=== PATIENT | female | born 1975 | race Caucasian/White ===

== ENCOUNTER 2017-02-08 16:12 | Emergency (ER) | payer BC ==
[~2017-02-08] VITALS: Ht 165.1 cm; Wt 109.0 kg
[~2017-02-08 16:12] MED LIST: ADVIN25050 INH; ALBU1AER9; GABA-112 PO; TRAM-10 PO
[2017-02-08 16:24] VITALS: Ht 165.1 cm; Wt 109.0 kg
[2017-02-08] MEDS ORDERED: SODIUM CHLORIDE 0.9% 1000ML 1,000 ML IV STA (18:03)
[2017-02-08] MEDS ORDERED: ONDANSETRON 8 MG/54 ML D5W IV STA (18:03)
[2017-02-08] MEDS ORDERED: ADVIN25/60 INH (18:31)
[2017-02-08] MEDS ORDERED: LISI-725 PO (18:32)
[2017-02-08] MEDS ORDERED: META1TAB22 PO (18:34)
[2017-02-08] MEDS ORDERED: PRED10TA PO (18:35)
--- NOTE | 2017-02-08 18:38 | DIAGNOSTIC IMAGING REPORT ---
CHEST ONE VIEW PORTABLE CLINICAL HISTORY: Altered mental status. Weakness. COMPARISON STUDY: 04/15/2007 FINDINGS: There are multiple bilateral pulmonary nodules which appear larger than on the prior study. There is no failure. There is no focal pulmonary consolidation. There are no pleural effusions.[ IMPRESSION: Slowly enlarging bilateral pulmonary nodules. Electronically signed by: Miguel Gillette M.D. 02/08/2017 6:37 PM Dictated Date/Time: 02/08/2017 6:35 PM
[2017-02-08 18:41] LABS: BASO % 0.2 %; BASO ABS # 0.03 K/uL (0-0.2); COMPLETE YES; EOS % 0.4 %; HEMATOCRIT 45.5 % (37-47); IG% 0.8 %; LYMPH % 5.8 %; LYMPH ABS # 0.74 K/uL (1.2-3.4); MEAN CELL VOLUME 86.8 fL (80-100); MEAN CORPUSCULAR HEMOGLOBIN 30.2 pg (25-34); MEAN CORPUSCULAR HGB CONC 34.7 g/dl (32-36); MEAN PLATELET VOLUME 9.5 fL (7.4-10.4); MONO % 8.5 %; NEUT % 84.3 %; PLATELET COUNT 262 K/uL (130-400); RED BLOOD COUNT 5.24 M/uL (4.2-5.4); WHITE BLOOD COUNT 12.86 K/uL (4.8-10.8)
--- NOTE | 2017-02-08 18:41 | EMERGENCY ROOM VISIT NOTE ---
History First contact with patient: 18:02 Chief Complaint: SYNCOPE (NEAR SYNCOPE) Stated Complaint: FLU - CHILLS - PASSING OUT - NAUSIATED - COLD/HOT Nursing Triage Summary: Patient reports around 1400 she started burping, feeling really hot, got sweaty and felt faint. Now she is chilled and weak all over, nauseated. History of Present Illness The patient is a 41 year old female who presents to the Emergency Room with complaints of syncopal episode. Patient reports around 2pm at work She abruptly started feeling sick including symptoms of subjective fever, chills, upset stomach, and lightheadedness. Around 2:15, She was found on floor by co- worker after brief episode of LOC. The event was unwitnessed. Patient has minimal recall of event. Since that time, patient reports progression of chills , lightheadedness, weakness but no further episodes of syncope. Additional symptoms include watery non-bloody diarrhea x1, body ache and since being in hospital increasing urinary urgency. + Sick contact at work diagnosed with influenza. She denies URI symptoms. Recently patient was started on 60 mg prednisone taper which started 02/04 which she reported was for prolapsed disc. Review of Systems See HPI for pertinent positives & negatives. A total of 10 systems reviewed and were otherwise negative. Past Medical/Surgical History Medical Problems: (1) Back pain (2) Hypertension Social History Smoking Status: Current Every Day Smoker Current/Historical Medications Scheduled Buspirone Hcl (Buspirone Hcl), 10 MG PO BID Fluticasone Prop/Salmeterol (Advair Diskus 250/50 60 Dose), 1 PUFF INH BID Lisinopril (Zestril), 20 MG PO DAILY Prednisone (Prednisone), 10 MG PO DAILY/UD Scheduled PRN Metaxalone (Skelaxin), 800 MG PO TID PRN for SPASMS Tramadol (Ultram), 50 MG PO QID PRN for Pain Allergies Coded Allergies: Latex (Verified Allergy, Intermediate, BLISTERS/RASH, 02/08/17) Naproxen (Verified Allergy, Intermediate, HIVES, 02/08/17) Latex1 -Allergic Contact Dermititis (Unverified Allergy, Mild, 02/08/17) Milk (Unverified Allergy, Mild, 02/08/17) Peanut (Verified Allergy, Mild, 02/08/17) Penicillins (Verified Allergy, Unknown, 02/08/17) Uncoded Allergies: PENCILLIN (Allergy, Intermediate, TONGUE SWELLS, 03/28/13) ADHESIVE TAPE (Allergy, Mild, RASH, 03/28/13) BAND-AIDS (Allergy, Mild, RASH, 03/28/13) Physical Exam Vital Signs Date Time Temp Pulse Resp B/P Pulse Ox O2 Delivery O2 Flow Rate FiO2 02/08/17 19:50 89 105/56 98 124/69 99 137/102 02/08/17 18:43 133/74 111/67 99/66 02/08/17 16:24 36.5 79 16 92/56 99 Room Air Physical Exam GENERAL: alert, mild distress, well nourished EYE EXAM: normal conjunctiva, PERRL and EOM's grossly intact OROPHARYNX: no exudate, no erythema, lips, buccal mucosa, and tongue normal and mucous membranes are moist NECK: supple, no nuchal rigidity, no adenopathy, non-tender LUNGS: Clear to auscultation. Normal chest wall mechanics HEART: no murmurs, S1 normal and S2 normal ABDOMEN: abdomen soft, non-tender, normo-active bowel sounds, no masses, no rebound or guarding. BACK: Back is symmetrical on inspection and there is no deformity, no midline tenderness, no CVA tenderness. SKIN: no rashes and no bruising UPPER EXTREMITIES: upper extremities are grossly normal. LOWER EXTREMITIES: No pitting edema. Medical Decision & Procedures ER Provider Diagnostic Interpretation: CHEST ONE VIEW PORTABLE CLINICAL HISTORY: Altered mental status. Weakness. COMPARISON STUDY: 04/15/2007 FINDINGS: There are multiple bilateral pulmonary nodules which appear larger than on the prior study. There is no failure. There is no focal pulmonary consolidation. There are no pleural effusions.[ IMPRESSION: Slowly enlarging bilateral pulmonary nodules. Laboratory Results 02/08/17 18:25 Red Blood Count 5.24, Mean Corpuscular Volume 86.8, Mean Corpuscular Hemoglobin 30.2, Mean Corpuscular Hemoglobin Concent 34.7, Mean Platelet Volume 9.5, Neutrophils (%) (Auto) 84.3, Lymphocytes (%) (Auto) 5.8, Monocytes (%) (Auto) 8.5, Eosinophils (%) (Auto) 0.4, Basophils (%) (Auto) 0.2, Neutrophils # (Auto) 10.85, Lymphocytes # (Auto) 0.74, Monocytes # (Auto) 1.09, Eosinophils # (Auto) 0.05, Basophils # (Auto) 0.03 02/08/17 18:25 Test 02/08/17 18:25 02/08/17 19:30 White Blood Count 12.86 K/uL (4.8-10.8) Red Blood Count 5.24 M/uL (4.2-5.4) Hemoglobin 15.8 g/dL (12.0-16.0) Hematocrit 45.5 % (37-47) Mean Corpuscular Volume 86.8 fL (80-100) Mean Corpuscular Hemoglobin 30.2 pg (25-34) Mean Corpuscular Hemoglobin Concent 34.7 g/dl (32-36) Platelet Count 262 K/uL (130-400) Mean Platelet Volume 9.5 fL (7.4-10.4) Neutrophils (%) (Auto) 84.3 % Lymphocytes (%) (Auto) 5.8 % Monocytes (%) (Auto) 8.5 % Eosinophils (%) (Auto) 0.4 % Basophils (%) (Auto) 0.2 % Neutrophils # (Auto) 10.85 K/uL (1.4-6.5) Lymphocytes # (Auto) 0.74 K/uL (1.2-3.4) Monocytes # (Auto) 1.09 K/uL (0.11-0.59) Eosinophils # (Auto) 0.05 K/uL (0-0.5) Basophils # (Auto) 0.03 K/uL (0-0.2) RDW Standard Deviation 39.5 fL (36.4-46.3) RDW Coefficient of Variation 12.2 % (11.5-14.5) Immature Granulocyte % (Auto) 0.8 % Immature Granulocyte # (Auto) 0.10 K/uL (0.00-0.02) Prothrombin Time 10.9 SECONDS (9.0-12.0) Prothromb Time International Ratio 1.0 (0.9-1.1) Activated Partial Thromboplast Time 24.9 SECONDS (21.0-31.0) Partial Thromboplastin Ratio 1.0 Anion Gap 8.0 mmol/L (3-11) Est Creatinine Clear Calc Drug Dose 81.0 ml/min Estimated GFR () 71.2 Estimated GFR (Non- 61.4 BUN/Creatinine Ratio 26.8 (10-20) Calcium Level 8.0 mg/dl (8.5-10.1) Magnesium Level 2.2 mg/dl (1.8-2.4) Total Bilirubin 0.8 mg/dl (0.2-1) Direct Bilirubin 0.1 mg/dl (0-0.2) Aspartate Amino Transf (AST/SGOT) 9 U/L (15-37) Alanine Aminotransferase (ALT/SGPT) 14 U/L (12-78) Alkaline Phosphatase 57 U/L (45-117) Total Creatine Kinase 46 U/L (26-192) Creatine Kinase MB < 0.5 ng/ml (0.5-3.6) Creatine Kinase MB Ratio (0-3.0) Troponin I < 0.015 ng/ml (0-0.045) Total Protein 6.9 gm/dl (6.4-8.2) Albumin 3.7 gm/dl (3.4-5.0) Lipase 137 U/L (73-393) Thyroid Stimulating Hormone (TSH) 1.580 uIu/ml (0.300-4.500) Urine Test NEG (NEG) Medications Administered Medications (Trade) Dose Ordered Sig/Obdulia Route Start Time Stop Time Status Last Admin Dose Admin Sodium Chloride (Nss 1000ml) 1,000 ml @ 999 mls/hr Q1H1M STAT IV 02/08/17 18:03 02/08/17 19:03 DC 02/08/17 18:32 999 MLS/HR Ondansetron HCl (Zofran 8mg Iv) 8 mg NOW STAT IV 02/08/17 18:03 02/08/17 18:05 DC 02/08/17 18:31 8 MG Procedure Sinus rhythm with short MO Nonspecific ST and T wave abnormality Medical Decision 41 yo F w/ hx of disc herniation currently on steroid taper p/w hx of syncopal episode in the setting of chills, bodyache, nausea, diarrhea. Afebrile, Orthostatic BP's of 133/74 supine, 111/67 sitting, 99/66 standing. Exam unremarkable. White Ct of 12.86. Glucose 137, BUN 30 Differential diagnosis includes etiologies such as vasovagal event, infection, hypoglycemia, electrolyte abnormalities, cardiac sources, intracerebral event, toxicologic, neurologic, as well as others were entertained. Elevated Glucose (137), mild leukocytosis likely due to current prednisone therapy. -Patient's Orthostatic BP's consistent with Orthostatic Hypotension. BUN of 30 likely indicates element of dehydration. -Given 1L IV Fluids , Zofran IV 8mg -Upon reevaluation, the patient is feeling better. I discussed the findings and the treatment plan with the patient. She verbalizes agreement and understanding. She was discharged home. Impression Primary Impression: Syncope Departure Information Referrals Sean Gillespie M.D. (PCP) Patient Instructions My [facility] Problem Qualifiers Primary Impression: Syncope Syncope type: unspecified Qualified Codes: R55 - Syncope and collapse
[2017-02-08] MEDS ORDERED: BUSP-8 PO (18:46)
[2017-02-08 18:53] LABS: PROTHROMBIN TIME (PATIENT) 10.9 SECONDS (9.0-12.0)
[2017-02-08 19:07] LABS: ALKALINE PHOSPHATASE 57 U/L (45-117); ALT/SGPT 14 U/L (12-78); AST/SGOT 9 U/L (15-37); BLOOD UREA NITROGEN 30 mg/dl (7-18); BUN/CREATININE RATIO 26.8 (10-20); CARBON DIOXIDE 26 mmol/L (21-32); CHLORIDE 103 mmol/L (98-107); GLUCOSE 137 mg/dl (70-99); MAGNESIUM 2.2 mg/dl (1.8-2.4); POTASSIUM 3.7 mmol/L (3.5-5.1); SODIUM 137 mmol/L (136-145)
[2017-02-08 20:09] LABS: URINE APPEARANCE CLEAR (CLEAR); URINE COLOR ORANGE; URINE EPITHELIAL CELL AUTO >30 /lpf (0-5); URINE NITRITE NEG (NEG); URINE SPECIFIC GRAVITY 1.042 (1.000-1.030); UROBILINOGEN NEG (NEG); ZZUR CULT IF INDIC CLEAN CATCH NO
[2017-02-08 20:11] LABS: MANUAL MICROSCOPIC REQUIRED? NO; REVIEW REQ? YES
[2017-02-08 20:12] LABS: URINE BILIRUBIN NEG (NEG)
[2017-02-08 20:19] VITALS: BP 108/56; PULSE 87; TEMP 37; O2SAT 98
--- NOTE | 2017-02-08 21:29 | EMERGENCY ROOM VISIT NOTE ---
History Report prepared by Nathaniel: [facility] Under the Supervision of: Dr. Brenton Pena D.O. First contact with patient: 18:03 Chief Complaint: SYNCOPE (NEAR SYNCOPE) Stated Complaint: FLU - CHILLS - PASSING OUT - NAUSIATED - COLD/HOT Nursing Triage Summary: Patient reports around 1400 she started burping, feeling really hot, got sweaty and felt faint. Now she is chilled and weak all over, nauseated. History of Present Illness The patient is a 41 year old female who presents to the Emergency Room with complaints of an episode of syncope that occurred around 1400 this afternoon. She reports around 1400, she started "burping and feeling diaphoretic and faint ". One of her friends found her lying in a stairwell shortly afterwards, but she is not sure how long exactly she was unconscious for. She notes she has been "really hot, nauseated and dizzy" for the past few hours. Earlier today she had 1 episode of non-bloody diarrhea and states since shes been in the ED, she feels cold, has the chills and body aches and thinks she has had an increase in urinary frequency. The patient admits a coworker of hers was recently diagnosed with influenza. She herself was prescribed a Prednisone taper on February 04 for a history of a prolapsed disc. Source of History: patient Onset: 1400 this afternoon Position: other (global) Timing: resolved Associated Symptoms: + LOC, + chills, + diarrhea, + nausea, + urinary symptoms Review of Systems See HPI for pertinent positives & negatives. A total of 10 systems reviewed and were otherwise negative. Past Medical & Surgical Medical Problems: (1) Back pain (2) Hypertension Social History Smoking Status: Current Every Day Smoker Alcohol Use: occasionally Drug Use: none Marital Status: Housing Status: lives with family Occupation Status: employed Current/Historical Medications Scheduled Buspirone Hcl (Buspirone Hcl), 10 MG PO BID Fluticasone Prop/Salmeterol (Advair Diskus 250/50 60 Dose), 1 PUFF INH BID Lisinopril (Zestril), 20 MG PO DAILY Prednisone (Prednisone), 10 MG PO DAILY/UD Scheduled PRN Metaxalone (Skelaxin), 800 MG PO TID PRN for SPASMS Tramadol (Ultram), 50 MG PO QID PRN for Pain Allergies Coded Allergies: Latex (Verified Allergy, Intermediate, BLISTERS/RASH, 02/08/17) Naproxen (Verified Allergy, Intermediate, HIVES, 02/08/17) Latex1 -Allergic Contact Dermititis (Unverified Allergy, Mild, 02/08/17) Milk (Unverified Allergy, Mild, 02/08/17) Peanut (Verified Allergy, Mild, 02/08/17) Penicillins (Verified Allergy, Unknown, 02/08/17) Uncoded Allergies: PENCILLIN (Allergy, Intermediate, TONGUE SWELLS, 03/28/13) ADHESIVE TAPE (Allergy, Mild, RASH, 03/28/13) BAND-AIDS (Allergy, Mild, RASH, 03/28/13) Physical Exam Vital Signs Date Time Temp Pulse Resp B/P Pulse Ox O2 Delivery O2 Flow Rate FiO2 02/08/17 20:19 37.0 87 16 108/56 98 02/08/17 19:50 89 105/56 98 124/69 99 137/102 02/08/17 18:43 133/74 111/67 99/66 02/08/17 16:24 36.5 79 16 92/56 99 Room Air Physical Exam CONSTITUTIONAL/VITAL SIGNS: Reviewed / noted above. GENERAL: Non-toxic in appearance. INTEGUMENTARY: Warm, dry, and [place]. HEAD: Normocephalic. EYES: without scleral icterus or trauma. ENT/OROPHARYNX: clear and moist. LYMPHADENOPATHY/NECK: Is supple without lymphadenopathy or meningismus. RESPIRATORY: Lungs clear and equal. CARDIOVASCULAR: Regular rate and rhythm. GI/ABDOMEN: Soft and nontender. No organomegaly or pulsatile mass. No rebound or guarding. Normal bowel sounds. EXTREMITIES: Warm and well perfused. BACK: No CVA tenderness. NEUROLOGICAL: Intact without focal deficits. PSYCHIATRIC: normal affect. MUSCULOSKELETAL: Normally developed with good muscle tone. Medical Decision & Procedures ER Provider Diagnostic Interpretation: This X-Ray was reviewed and interpreted by myself and the radiologist. CHEST ONE VIEW PORTABLE IMPRESSION: Slowly enlarging bilateral pulmonary nodules. Electronically signed by: Miguel Gillette M.D. 02/08/2017 6:37 PM Laboratory Results 02/08/17 18:25 Red Blood Count 5.24, Mean Corpuscular Volume 86.8, Mean Corpuscular Hemoglobin 30.2, Mean Corpuscular Hemoglobin Concent 34.7, Mean Platelet Volume 9.5, Neutrophils (%) (Auto) 84.3, Lymphocytes (%) (Auto) 5.8, Monocytes (%) (Auto) 8.5, Eosinophils (%) (Auto) 0.4, Basophils (%) (Auto) 0.2, Neutrophils # (Auto) 10.85, Lymphocytes # (Auto) 0.74, Monocytes # (Auto) 1.09, Eosinophils # (Auto) 0.05, Basophils # (Auto) 0.03 02/08/17 18:25 Test 02/08/17 18:25 02/08/17 19:30 White Blood Count 12.86 K/uL (4.8-10.8) Red Blood Count 5.24 M/uL (4.2-5.4) Hemoglobin 15.8 g/dL (12.0-16.0) Hematocrit 45.5 % (37-47) Mean Corpuscular Volume 86.8 fL (80-100) Mean Corpuscular Hemoglobin 30.2 pg (25-34) Mean Corpuscular Hemoglobin Concent 34.7 g/dl (32-36) Platelet Count 262 K/uL (130-400) Mean Platelet Volume 9.5 fL (7.4-10.4) Neutrophils (%) (Auto) 84.3 % Lymphocytes (%) (Auto) 5.8 % Monocytes (%) (Auto) 8.5 % Eosinophils (%) (Auto) 0.4 % Basophils (%) (Auto) 0.2 % Neutrophils # (Auto) 10.85 K/uL (1.4-6.5) Lymphocytes # (Auto) 0.74 K/uL (1.2-3.4) Monocytes # (Auto) 1.09 K/uL (0.11-0.59) Eosinophils # (Auto) 0.05 K/uL (0-0.5) Basophils # (Auto) 0.03 K/uL (0-0.2) RDW Standard Deviation 39.5 fL (36.4-46.3) RDW Coefficient of Variation 12.2 % (11.5-14.5) Immature Granulocyte % (Auto) 0.8 % Immature Granulocyte # (Auto) 0.10 K/uL (0.00-0.02) Prothrombin Time 10.9 SECONDS (9.0-12.0) Prothromb Time International Ratio 1.0 (0.9-1.1) Activated Partial Thromboplast Time 24.9 SECONDS (21.0-31.0) Partial Thromboplastin Ratio 1.0 Anion Gap 8.0 mmol/L (3-11) Est Creatinine Clear Calc Drug Dose 81.0 ml/min Estimated GFR () 71.2 Estimated GFR (Non- 61.4 BUN/Creatinine Ratio 26.8 (10-20) Calcium Level 8.0 mg/dl (8.5-10.1) Magnesium Level 2.2 mg/dl (1.8-2.4) Total Bilirubin 0.8 mg/dl (0.2-1) Direct Bilirubin 0.1 mg/dl (0-0.2) Aspartate Amino Transf (AST/SGOT) 9 U/L (15-37) Alanine Aminotransferase (ALT/SGPT) 14 U/L (12-78) Alkaline Phosphatase 57 U/L (45-117) Total Creatine Kinase 46 U/L (26-192) Creatine Kinase MB < 0.5 ng/ml (0.5-3.6) Creatine Kinase MB Ratio (0-3.0) Troponin I < 0.015 ng/ml (0-0.045) Total Protein 6.9 gm/dl (6.4-8.2) Albumin 3.7 gm/dl (3.4-5.0) Lipase 137 U/L (73-393) Thyroid Stimulating Hormone (TSH) 1.580 uIu/ml (0.300-4.500) Urine Color ORANGE Urine Appearance CLEAR (CLEAR) Urine pH 5.0 (4.5-7.5) Urine Specific [place] 1.042 (1.000-1.030) Urine Protein NEG (NEG) Urine Glucose (UA) NEG (NEG) Urine Ketones TRACE (NEG) Urine Occult Blood NEG (NEG) Urine Nitrite NEG (NEG) Urine Bilirubin NEG (NEG) Urine Urobilinogen NEG (NEG) Urine Leukocyte Esterase NEG (NEG) Urine WBC (Auto) 1-5 /hpf (0-5) Urine RBC (Auto) 10-30 /hpf (0-4) Urine Hyaline Casts (Auto) 5-10 /lpf (0-5) Urine Epithelial Cells (Auto) >30 /lpf (0-5) Urine Bacteria (Auto) NEG (NEG) Urine Renal Epithelial Cells 20-30 /lpf (0-5) Urine Test NEG (NEG) Laboratory results as stated above per my review. Medications Administered Medications (Trade) Dose Ordered Sig/Obdulia Route Start Time Stop Time Status Last Admin Dose Admin Sodium Chloride (Nss 1000ml) 1,000 ml @ 999 mls/hr Q1H1M STAT IV 02/08/17 18:03 02/08/17 19:03 DC 02/08/17 18:32 999 MLS/HR Ondansetron HCl (Zofran 8mg Iv) 8 mg NOW STAT IV 02/08/17 18:03 02/08/17 18:05 DC 02/08/17 18:31 8 MG ECG Indication: syncope Rate (beats per minute): 91 Rhythm: sinus rhythm Findings: no acute ischemic change, no ectopy ED Course 1899: Previous medical records were reviewed. The patient was evaluated in room B12A. A complete history and physical examination was performed. 1802: Zofran 8 mg IV, NSS 1000 ml @ 999 mls/hr IV. 1999: I reevaluated the patient. She is feeling better. I discussed her results and discharge instructions and she verbalized complete understanding and agreement. Medical Decision Differential includes acute cardiac dysrhythmia, microinfarction, CVA, TIA, dehydration, anemia, electrolyte disturbance, seizure, trauma, intracranial bleeding, acute vascular catastrophe, thoracic aortic dissection, PE, abdominal aortic aneurysm rupture, ectopic rupture. This is a 41-year-old female who presents to the ED with a chief complaint of possible syncope. The patient has had some flulike symptoms as well as nausea. She developed lightheadedness and feels like she may have passed out. She has some nausea as well as some hot and cold spells. She states that she was in contact with someone who has the flu at work. She had one episode of diarrhea. She is currently on prednisone for herniated disc. The patient has a blood pressure 92/56. Orthostatic vital signs were positive. White blood cell count was 12.8. BUN is 30 and a glucose 137. Troponin was negative. TSH is normal. The patient was treated with a liter of normal saline IV as well as IV Zofran. Repeat orthostatic vital signs are normal. The patient was feeling better. She was felt to be stable for discharge. Impression Primary Impression: Syncope Additional Impressions: Dehydration Orthostasis Scribe Attestation The scribe's documentation has been prepared under my direction and personally reviewed by me in its entirety. I confirm that the note above accurately reflects all work, treatment, procedures, and medical decision making performed by me. Departure Information Dispostion Home / Self-Care Referrals Sean Gillespie M.D. (PCP) Patient Instructions My [facility] Problem Qualifiers Primary Impression: Syncope Syncope type: unspecified Qualified Codes: R55 - Syncope and collapse
== END 2017-02-08 20:22 | disposition home or self-care (01) ==
LOC: C.EDB 16:13
DX: R55 Syncope and collapse (principal); R11.0 Nausea; R68.83 Chills (without fever); R53.1 Weakness; F17.210 Nicotine dependence, cigarettes, uncomplicated

== ENCOUNTER → 2017-03-02 | Outpatient (CLI) | payer BC ==
[~2017-03-02] MED LIST changes: +ADVIN25/60 INH; -ADVIN25050 INH; -ALBU1AER9; +BUSP-8 PO; -GABA-112 PO; +LISI-725 PO; +META1TAB22 PO; +PRED10TA PO
--- NOTE | 2017-03-02 08:49 | DIAGNOSTIC IMAGING REPORT ---
CT OF THE CHEST WITHOUT IV CONTRAST CLINICAL HISTORY: Multiple lung nodules. COMPARISON STUDY: Chest CT May 23, 2007 and chest radiograph February 08, 2017. CT DOSE: 777.66 mGy.cm TECHNIQUE: Axial images of the chest were obtained without IV contrast. Images were reviewed in the axial, sagittal, and coronal planes. IV contrast was not administered for this examination. FINDINGS: The size the heart is normal. There is no pericardial effusion. There are several partially calcified mildly enlarged bilateral hilar lymph nodes. There are several prominent mediastinal lymph nodes. The hilar lymph nodes are suboptimally assessed on this unenhanced exam but are either unchanged or decreased in size since exam of May 23, 2007. Numerous centrally calcified pulmonary nodules are noted. Several these have mildly increased in size since exam of May 23, 2007. However, these are benign. There is atelectasis within the lateral segment of the right middle lobe. No central obstructing mass is present. No pneumothorax or pleural effusion is present. Bony thorax and upper abdomen are unremarkable. IMPRESSION: 1. Numerous centrally calcified pulmonary nodules. Several these have mildly increased in size since CT of May 23, 2007. However, the nodules are benign and suggests a prior granulomatous process. 2. Partially calcified prominent bilateral hilar and mediastinal lymph nodes which have slightly decreased in size and suggest a prior granulomatous process. 3. Subsegmental right middle lobe atelectasis. No central obstructing mass identified. Electronically signed by: Hemant Jung M.D. 03/02/2017 8:46 AM Dictated Date/Time: 03/02/2017 8:38 AM
== END | disposition home or self-care (01) ==
LOC: C.CTS 08:24
PROVIDERS: ATTEND Internal Medicine Pulmonary Disease
DX: R91.8 Other nonspecific abnormal finding of lung field (principal)

== ENCOUNTER → 2018-03-01 | Outpatient (CLI) | payer OTHER ==
[2018-03-01 12:33] LABS: BASO % 0.9 %; BASO ABS # 0.08 K/uL (0-0.2); EOS % 1.5 %; EOS ABS # 0.13 K/uL (0-0.5); HEMATOCRIT 42.5 % (37-47); HEMOGLOBIN 14.7 g/dL (12.0-16.0); IG# 0.02 K/uL (0.00-0.02); LYMPH ABS # 2.62 K/uL (1.2-3.4); MEAN CELL VOLUME 89.3 fL (80-100); MEAN CORPUSCULAR HEMOGLOBIN 30.9 pg (25-34); MEAN CORPUSCULAR HGB CONC 34.6 g/dl (32-36); MEAN PLATELET VOLUME 9.8 fL (7.4-10.4); MONO % 9.9 %; MONO ABS # 0.84 K/uL (0.11-0.59); NEUT % 56.5 %; NEUT ABS # 4.76 K/uL (1.4-6.5); PLATELET COUNT 281 K/uL (130-400); RED CELL DISTRIBUTION WIDTH CV 12.1 % (11.5-14.5); RED CELL DISTRIBUTION WIDTH SD 39.3 fL (36.4-46.3); WHITE BLOOD COUNT 8.45 K/uL (4.8-10.8)
[2018-03-01 12:50] LABS: HEMOGLOBIN A1C 5.7 % (4.5-5.6)
[2018-03-01 12:58] LABS: ALBUMIN 3.8 gm/dl (3.4-5.0); ALT/SGPT 17 U/L (12-78); AST/SGOT 13 U/L (15-37); BLOOD UREA NITROGEN 18 mg/dl (7-18); CALCIUM 8.7 mg/dl (8.5-10.1); CARBON DIOXIDE 28 mmol/L (21-32); CREATININE 1.03 mg/dl (0.60-1.20); GLUCOSE 102 mg/dl (70-99); POTASSIUM 4.1 mmol/L (3.5-5.1); SODIUM 136 mmol/L (136-145)
[2018-03-01 13:06] LABS: ALKALINE PHOSPHATASE 70 U/L (45-117); CHOLESTEROL 160 mg/dl (0-200); LDL CHOLESTEROL CALCULATED 91 mg/dl; TOTAL PROTEIN 7.3 gm/dl (6.4-8.2)
== END | disposition home or self-care (01) ==
LOC: C.LABBFT 07:42
PROVIDERS: ATTEND Physician Assistant Medical
DX: I10 Essential (primary) hypertension (principal); R73.01 Impaired fasting glucose